=== PATIENT | male | born 1990 | race Caucasian/White ===

== ENCOUNTER 2016-12-10 09:38 | Emergency (ER) | payer SELFPAY ==
[~2016-12-10] VITALS: Ht 172.7 cm; Wt 71.2 kg
[2016-12-10 11:52] VITALS: BP 121/62
== END 2016-12-10 11:52 | disposition home or self-care (01) ==
LOC: ED 09:38
DX: S91.111A Laceration without foreign body of right great toe without damage to nail, initial encounter (principal); Z72.89 Other problems related to lifestyle; W22.8XXA Striking against or struck by other objects, initial encounter; Y93.89 Activity, other specified; Y99.8 Other external cause status; Y92.89 Other specified places as the place of occurrence of the external cause
CPT/HCPCS: 90715; J2001